=== PATIENT | male | born 1980 | race Caucasian/White ===

== ENCOUNTER 2019-01-21 09:07 | Emergency (ER) | payer OTHER ==
[2019-01-21] MEDS ORDERED: HYDROCODONE/APAP 10/325 TAB ONE (09:31)
[2019-01-21] MEDS ORDERED: KETOROLAC 30 MG/ML INJ ONE (09:31)
--- NOTE | 2019-01-21 10:15 | ER ---
Nurse's Notes [facility] Name: Rubens Pinon Age: 38 yrs Sex: Male : 1980 Arrival Date: 01/21/2019 Time: 09:09 Bed 13 Private MD: Diagnosis: Radiculopathy, cervical region Presentation: 01/21 09:19 Presenting complaint: Left upper back pain that radiates to left shoulder and upper hb arm. Transition of care: patient was not received from another setting of care. Onset of symptoms was January 21, 2019. Risk Assessment: Do you want to hurt yourself or someone else? Patient reports no desire to harm self or others. Care prior to arrival: None. 09:19 Method Of Arrival: Ambulatory 09:19 Acuity: ASA 3 hb 09:39 Initial Sepsis Screen: Does the patient meet any 2 criteria? No. Patient's initial hb sepsis screen is negative. Does the patient have a suspected source of infection? No. Patient's initial sepsis screen is negative. Triage Assessment: 09:20 General: Appears in no apparent distress. uncomfortable, Behavior is calm, cooperative. hb Pain: Pain currently is 10 out of 10 on a pain scale. EENT: No signs and/or symptoms were reported regarding the EENT system. Neuro: Level of Consciousness is awake, alert, obeys commands, Oriented to person, place, time, situation. Cardiovascular: Capillary refill < 3 seconds Patient's skin is warm and dry. Respiratory: Airway is patent Respiratory effort is even, unlabored, Respiratory pattern is regular, symmetrical. GI: No signs and/or symptoms were reported involving the gastrointestinal system. : No signs and/or symptoms were reported regarding the genitourinary system. Derm: Skin is intact, is healthy with good turgor. Musculoskeletal: Circulation, motion, and sensation intact. Reports left upper back pain that radiates to left shoulder and left upper arm. Historical: - Allergies: 09:21 PENICILLINS; hb - Home Meds: 09:21 None [Active]; hb - PMHx: 09:21 None; hb - PSHx: 09:21 None; hb - Immunization history:: Adult Immunizations up to date. - Social history:: Smoking status: Patient/guardian denies using tobacco. - Ebola Screening: : No symptoms or risks identified at this time. Screenin:21 Abuse screen: Denies threats or abuse. Denies injuries from another. Nutritional hb screening: No deficits noted. Tuberculosis screening: No symptoms or risk factors identified. Fall Risk None identified. Assessment: 09:32 General: see triage assessment . hb 10:22 Reassessment: Patient appears in no apparent distress at this time. Patient and/or hb family updated on plan of care and expected duration. Pain level reassessed. Patient is alert, oriented x 3, equal unlabored respirations, skin warm/dry/pink. Vital Signs: 09:20 BP 149 / 91; Pulse 84; Resp 16; Temp 97.8; Pulse Ox 100% ; Weight 129.27 kg; Height 5 hb ft. 11 in. (180.34 cm); Pain 10/10; 09:20 Body Mass Index 39.75 (129.27 kg, 180.34 cm) hb ED Course: 09:09 Patient arrived in ED. mr 09:10 [facility] kb 09:10 Juan Birch MD is Attending Physician. kb 09:18 Hope Sumner, VILMA is Primary Nurse. hb 09:19 Triage completed. hb 09:20 Arm band placed on. hb 09:21 Patient has correct armband on for positive identification. Bed in low position. Call hb light in reach. Side rails up X 1. 09:58 Chest Pa And Lat (2 Views) XRAY In Process Unspecified. EDMS 10:27 No provider procedures requiring assistance completed. hb 10:28 Patient did not have IV access during this emergency room visit. hb Administered Medications: 09:34 Drug: TORadol 30 mg Route: IM; Site: right deltoid; hb 10:22 Follow up: Response: No adverse reaction hb 09:34 Drug: [place] 10 mg-325 mg 1 tabs Route: PO; hb 10:22 Follow up: Response: No adverse reaction hb 10:22 Drug: Flexeril 10 mg Route: PO; hb 10:28 Follow up: Response: Medication administered at discharge. hb Outcome: 10:15 Discharge ordered by . kb 10:27 Discharged to home ambulatory. hb 10:27 Condition: stable 10:27 Discharge instructions given to patient, Instructed on discharge instructions, follow up and referral plans. medication usage, Demonstrated understanding of instructions, follow-up care, medications, Prescriptions given X 3. 10:31 Patient left the ED. hb Signatures: Dispatcher [employer] EDCarmen Catherine, VIRGIE LEE-Chaya Kuo Heather, RN RN hb
--- NOTE | 2019-01-21 10:16 | EDPHYS ---
Physician Documentation [facility] Name: Rubens Pinon Age: 38 yrs Sex: Male : 1980 Arrival Date: 01/21/2019 Time: 09:09 Bed 13 Private MD: ED Physician Juan Birch HPI: 01/21 10:20 This 38 yrs old Male presents to ER via Ambulatory with complaints of kb Shoulder Pain, Back Pain. 10:20 The patient presents with pain that is acute. The symptoms are located in the left kb trapezius and left scapular area. Onset: The symptoms/episode began/occurred this morning. The pain radiates to the left arm. Associated signs and symptoms: Pertinent positives: none. The problem was sustained without known cause. Modifying factors: The patient symptoms are alleviated by nothing, the patient symptoms are aggravated by any movement. Severity of symptoms: At their worst the symptoms were moderate, in the emergency department the symptoms are unchanged. The patient has not experienced similar symptoms in the past. The patient has not recently seen a physician. Pt reports he slept in his daughter's bed last night, woke up in the middle of the night with back pain, then this morning had pain to left upper back/scapular area that radiates down the back of left arm. States he has had a pinched nerve before and that is what it feels like, but everyone wanted him to come get his heart checked since it was on the left side. Denies chest pain, shortness of breath or any other symptoms. Historical: - Allergies: 09:21 PENICILLINS; hb - Home Meds: 09:21 None [Active]; hb - PMHx: 09:21 None; hb - PSHx: 09:21 None; hb - Immunization history:: Adult Immunizations up to date. - Social history:: Smoking status: Patient/guardian denies using tobacco. - Ebola Screening: : No symptoms or risks identified at this time. ROS: 10:18 Constitutional: Negative for fever, chills, and weight loss, Cardiovascular: Negative kb for chest pain, palpitations, and edema, Respiratory: Negative for shortness of breath, cough, wheezing, and pleuritic chest pain, Abdomen/GI: Negative for abdominal pain, nausea, vomiting, diarrhea, and constipation, : Negative for injury, bleeding, discharge, and swelling, MS/Extremity: Negative for injury and deformity, Skin: Negative for injury, rash, and discoloration, Neuro: Negative for headache, weakness, numbness, tingling, and seizure. 10:18 Back: Positive for pain at rest, pain with movement, radiated pain, of the left trapezius. Exam: 10:18 Head/Face: Normocephalic, atraumatic. Neck: Trachea midline, no thyromegaly or masses kb palpated, and no cervical lymphadenopathy. Supple, full range of motion without nuchal rigidity, or vertebral point tenderness. No Meningismus. Chest/axilla: Normal chest wall appearance and motion. Nontender with no deformity. No lesions are appreciated. Cardiovascular: Regular rate and rhythm with a normal S1 and S2. No gallops, murmurs, or rubs. Normal PMI, no JVD. No pulse deficits. Respiratory: Lungs have equal breath sounds bilaterally, clear to auscultation and percussion. No rales, rhonchi or wheezes noted. No increased work of breathing, no retractions or nasal flaring. Abdomen/GI: Soft, non-tender, with normal bowel sounds. No distension or tympany. No guarding or rebound. No evidence of tenderness throughout. Back: No spinal tenderness. No costovertebral tenderness. Full range of motion. Skin: Warm, dry with normal turgor. Normal color with no rashes, no lesions, and no evidence of cellulitis. MS/ Extremity: Pulses equal, no cyanosis. Neurovascular intact. Full, normal range of motion. Neuro: Awake and alert, GCS 15, oriented to person, place, time, and situation. Cranial nerves II-XII grossly intact. Motor strength 5/5 in all extremities. Sensory grossly intact. Cerebellar exam normal. Normal gait. 10:18 Constitutional: The patient appears alert, awake, uncomfortable. 10:19 ECG was reviewed by the Attending Physician. kb Vital Signs: 09:20 BP 149 / 91; Pulse 84; Resp 16; Temp 97.8; Pulse Ox 100% ; Weight 129.27 kg; Height 5 hb ft. 11 in. (180.34 cm); Pain 10/10; 09:20 Body Mass Index 39.75 (129.27 kg, 180.34 cm) hb MDM: 09:17 Patient medically screened. kb 10:19 Data reviewed: vital signs, nurses notes. Data interpreted: Pulse oximetry: on room air kb is 100 %. Interpretation: normal. Counseling: I had a detailed discussion with the patient and/or guardian regarding: the historical points, exam findings, and any diagnostic results supporting the discharge/admit diagnosis, radiology results, the need for outpatient follow up, a family practitioner, to return to the emergency department if symptoms worsen or persist or if there are any questions or concerns that arise at home. 01/21 09:18 Order name: Chest Pa And Lat (2 Views) XRAY kb 01/21 09:18 Order name: EKG; Complete Time: kb 01/21 09: Order name: EKG - Nurse/Tech; Complete Time: 34 kb EC: Rate is 70 beats/min. Rhythm is regular, Normal Sinus Rhythm. QRS [place] is Normal. [place] kb interval is normal at 148 msec. QRS interval is normal at 90 msec. QT interval is normal at 364 msec. Administered Medications: 09:34 Drug: TORadol 30 mg Route: IM; Site: right deltoid; hb 10:22 Follow up: Response: No adverse reaction hb 09:34 Drug: [place] 10 mg-325 mg 1 tabs Route: PO; hb 10:22 Follow up: Response: No adverse reaction hb 10:22 Drug: Flexeril 10 mg Route: PO; hb 10:28 Follow up: Response: Medication administered at discharge. hb Disposition: 10:49 Co-signature as Attending Physician, Juan Birch MD. rn Disposition: 01/21/19 10:15 Discharged to Home. Impression: Radiculopathy, cervical region. - Condition is Stable. - Discharge Instructions: Cervical Radiculopathy, [id number]. - Prescriptions for Prednisone 20 mg Oral Tablet - take 1 tablet by ORAL route once daily for 5 days; 5 tablet. Tylenol- Codeine #3 300-30 mg Oral Tablet - take 2 tablets by ORAL route every 6 hours As needed; 10 tablet. Cyclobenzaprine 10 mg Oral Tablet - take 1 tablet by ORAL route every 8 hours As needed; 30 tablet. - Work release form, Medication Reconciliation Form, Thank You Letter, Antibiotic Education, Prescription Opioid Use form. - Follow up: Emergency Department; When: As needed; Reason: Worsening of condition. Follow up: Private Physician; When: 2 - 3 days; Reason: Recheck today's complaints, Continuance of care, Re-evaluation by your physician. Signatures: Dispatcher [employer] Carmen Saucedo, VIRGIE LEE-Juan Vaughn MD MD rn Baxter, Heather, RN RN Corrections: (The following items were deleted from the chart) 10:31 10:15 01/21/2019 10:15 Discharged to Home. Impression: Radiculopathy, cervical region. hb Condition is Stable. Forms are Medication Reconciliation Form, Thank You Letter, Antibiotic Education, Prescription Opioid Use. Follow up: Emergency Department; When: As needed; Reason: Worsening of condition. Follow up: Private Physician; When: 2 - 3 days; Reason: Recheck today's complaints, Continuance of care, Re-evaluation by your physician. kb
[2019-01-21] MEDS ORDERED: CYCLOBENZAPRINE 10 MG TAB ONE (10:20)
--- NOTE | 2019-01-21 10:52 | RAD REPORT ---
EXAM DESCRIPTION: Magan Albarran (2 Views)01/21/2019 10:00 am CLINICAL HISTORY: Chest pain COMPARISON: None FINDINGS: The lungs appear clear of acute infiltrate. The heart is normal size IMPRESSION: No acute abnormalities displayed
[2019-01-21 12:28] VITALS: BP 149/91; TEMP 97.8; O2SAT 100
--- NOTE | 2019-01-21 15:09 | EKG ---
Test Date: 2019-01-21 Test Time: 09:31:31 Primary Montessori Teacher: DANIE MEASUREMENT RESULTS: Intervals: Rate: 70 NM: 148 QRSD: 90 QT: 364 QTc: 393 [place]: P: 42 NM: 148 QRS: 54 T: 25 INTERPRETIVE STATEMENTS: Normal sinus rhythm with sinus arrhythmia Normal ECG No previous ECG available for comparison Electronically Signed On 01-21-19 15:08:06 INTAKE CLINICIAN by Jose Bowen
== END 2019-01-21 10:31 | disposition home or self-care (01) ==
LOC: ER 09:07
DX: M54.12 Radiculopathy, cervical region (principal); Z88.0 Allergy status to penicillin
CPT/HCPCS: 71046; 93005; 96372; 99283